=== PATIENT | male | born 1940 | race Caucasian/White ===

== ENCOUNTER 2022-03-25 09:50 | Emergency (ER) | payer MEDICARE ==
[~2022-03-25] VITALS: Ht 177.8 cm; Wt 72.0 kg
[2022-03-25] MEDS ORDERED: ZPAK PO (10:19)
[2022-03-25] MEDS ORDERED: AMOX/K CLAV875 M1 PO (10:25)
[2022-03-25 11:36] VITALS: BP 132/66
== END 2022-03-25 11:51 | disposition home or self-care (01) ==
LOC: ED 09:50
DX: S61.451A Open bite of right hand, initial encounter (principal); I10 Essential (primary) hypertension; W55.01XA Bitten by cat, initial encounter; Y92.007 Garden or yard of unspecified non-institutional (private) residence as the place of occurrence of the external cause